=== PATIENT | male | born 1985 | race Caucasian/White ===

== ENCOUNTER 2019-04-07 03:12 | Emergency (ER) | payer SELFPAY ==
[2019-04-07 04:58] LABS: HEMATOCRIT 46.3 % (37.9-51.0); HEMOGLOBIN 15.7 g/dL (13.5-17.0); MEAN CORPUSCULAR HEMOGLOBIN 31.1 pg (27.0-33.4); MEAN CORPUSCULAR VOLUME 92 fl (80-97); PLATELET COUNT 250 10^3/uL (150-450); RED BLOOD COUNT 5.06 10^6/uL (4.35-5.55); RED CELL DISTRIBUTION WIDTH 13.2 % (11.5-14.0); WHITE BLOOD COUNT 20.4 10^3/uL (4.0-10.5)
[2019-04-07 04:59] LABS: APPEARANCE,URINE CLEAR; BILIRUBIN,URINE NEGATIVE (NEGATIVE); COLOR,URINE YELLOW; GLUCOSE, URINE NEGATIVE (NEGATIVE); KETONES,URINE NEGATIVE (NEGATIVE); LEUKOCYTE ESTERASE,URINE NEGATIVE (NEGATIVE); NITRITE,URINE NEGATIVE (NEGATIVE); PROTEIN,URINE 30 mg/dL (NEGATIVE); URINE SPECIFIC GRAVITY 1.024
[2019-04-07 05:16] LABS: ALBUMIN 4.3 g/dL (3.5-5.0); ALKALINE PHOSPHATASE 58 U/L (38-126); ANION GAP 8 (5-19); ASPARTATE AMINO TRANSFERASE 25 U/L (17-59); BILIRUBIN,DIRECT 0.3 mg/dL (0.0-0.4); BILIRUBIN,TOTAL 0.3 mg/dL (0.2-1.3); BLOOD UREA NITROGEN 15 mg/dL (7-20); CALCIUM 10.1 mg/dL (8.4-10.2); CARBON DIOXIDE 33 mmol/L (22-30); CHLORIDE 100 mmol/L (98-107); GLUCOSE 123 mg/dL (75-110); POTASSIUM 4.4 mmol/L (3.6-5.0); TOTAL PROTEIN 7.5 g/dL (6.3-8.2)
[2019-04-07 05:38] LABS: ABSOLUTE LYMPHOCYTES# (MANUAL) 1.2 10^3/uL (0.5-4.7); ABSOLUTE MONOCYTES # (MANUAL) 0.8 10^3/uL (0.1-1.4); BASOPHILS % (MANUAL) 0 % (0-2); EOSINOPHILS % (MANUAL) 0 % (0-6); LYMPHOCYTES % (MANUAL) 6 % (13-45); MONOCYTES % (MANUAL) 4 % (3-13); SEGMENTED NEUTROPHILS % (MAN) 90 % (42-78); TOTAL CELLS COUNTED 100
[2019-04-07 05:42] LABS: ANISOCYTOSIS 1+; OVALOCYTES 2+; PLATELET COMMENT ADEQUATE; POIKILOCYTOSIS 1+; TEAR DROP CELLS 1+; TOXIC GRANULATION 1+
[2019-04-07] MEDS ORDERED: KETOROLAC TROMETHAMINE INJ/PF 30 MG/1 ML SDV IV ONE (07:25)
[2019-04-07] MEDS ORDERED: ONDANSETRON HCL INJ/PF 4 MG/2 ML SDV IV ONE (07:26)
[2019-04-07] MEDS ORDERED: NORMAL SALINE 1000 ML 1,000 ML IV ONE (07:26)
--- NOTE | 2019-04-07 07:33 | ER Document Report ---
ED General - General Chief Complaint: Flank Pain Stated Complaint: ABDOMINAL PAIN Time Seen by Provider: 04/07/19 06:08 TRAVEL OUTSIDE OF THE [place] IN LAST 30 DAYS: No - HPI Notes: 33-year-old male with 5-day history of intermittent right flank pain. Worse with in last 12 hours and now moving to right upper quadrant abdomen and radiating down into right testicle. Associated nausea without vomiting. No fever/chills. No gross hematuria. Patient reports previous history of kidney stone around age 16. This was passed spontaneously. No prescription medications. No known allergies. No major surgery or serious illnesses otherwise. 1 pack/day cigarette smoker. Occasional social alcohol. No drug use. Patient works as a cook. - Related Data Allergies/Adverse Reactions: No Known Allergies Allergy (Unverified 04/07/19 05:36) Home Medications: methadone Past Medical History - General Information source: Patient, Relative - Social History Smoking Status: Current Every Day Smoker Frequency of alcohol use: Occasional Drug Abuse: None Lives with: Family Family History: Reviewed & Not Pertinent Patient has suicidal ideation: No Patient has homicidal ideation: No Renal/ Medical History: Reports: Hx Kidney Stones Past Surgical History: Reports: Hx Oral Surgery - WISDOM TEETH Review of Systems - Review of Systems Notes: Constitutional: Negative for fever. HENT: Negative for sore throat. Eyes: Negative for visual changes. Cardiovascular: Negative for chest pain. Respiratory: Negative for shortness of breath. Gastrointestinal: As per HPI. Genitourinary: As per HPI. Musculoskeletal: As per HPI. Skin: Negative for rash. Neurological: Negative for headaches, weakness or numbness. 10 point ROS negative except as marked above and in HPI. Physical Exam - Vital signs Vitals: Temp Pulse Resp BP Pulse Ox 98.8 F 96 16 126/72 H 100 04/07/19 03:17 04/07/19 03:17 04/07/19 03:17 04/07/19 03:17 04/07/19 03:17 - Notes Notes: GENERAL: Well-developed well-nourished appearing in moderate discomfort. SKIN: Good turgor no rashes. HEAD: Normocephalic atraumatic. EYES: PERRLA. EOMI. Conjunctivae and sclerae clear. EARS: CANALS AND TMS CLEAR. NOSE: CLEAR. MOUTH: Moist mucosa. Good dentition. No stridor or edema. No drooling. NECK: Supple. No masses or thyromegaly. No adenopathy. Carotids 2+ without bruits. No JVD. BACK: Minimal right CVA tenderness. CHEST: Respirations unlabored. Breath sounds clear and symmetrical. HEART: Regular rhythm. No murmur gallop or rub. ABDOMEN: Mild tenderness on deep palpation right upper quadrant. Soft without masses, organomegaly or rebound. Bowel sounds normally active. No bruits. GENITALIA: Deferred. EXTREMITIES: No edema. No calf tenderness. Cap refill less than 1.5 seconds. Dorsalis pedis and posterior tibial pulses 3+ and symmetrical. NEUROLOGICAL: GCS 15. Alert and oriented x3. Normal gait. Fluent speech. Cranial nerves II through XII intact. Sensorimotor and cerebellar normal. Normal tone. PSYCHIATRIC: Appropriate affect. Course - Re-evaluation Re-evalutation: 04/07/19 07:33 Clinically the patient has renal colic. IV normal saline. IV Toradol and Zof ran. CT stone study requested. 04/07/19 09:15 Asymptomatic at this time. 3 mm stone mid right ureter on CT. Findings discussed with patient and his mother and they understand my current recommendat ions and agree with these. Stable for outpatient follow-up with urology. - Vital Signs Vital signs: Temp Pulse Resp BP Pulse Ox 98.0 F 63 16 105/57 L 95 04/07/19 08:59 04/07/19 08:59 04/07/19 08:59 04/07/19 08:59 04/07/19 08:59 - Laboratory Result Diagrams: 04/07/19 04:42 04/07/19 04:42 Laboratory results interpreted by me: 04/07/19 04/07/19 04/07/19 03:54 04:42 04:42 WBC 20.4 H Seg Neuts % (Manual) 90 H Lymphocytes % (Manual) 6 L Abs Neuts (Manual) 18.4 H Carbon Dioxide 33 H Glucose 123 H Urine Protein 30 H Urine Blood LARGE H Urine Urobilinogen 2.0 H - Diagnostic Test Radiology reviewed: Reports reviewed Radiology results interpreted by me: 04/07/19 09:15 3 mm stone mid right ureter Discharge - Discharge Clinical Impression: Right ureterolithiasis with renal colic Condition: Stable Disposition: HOME, SELF-CARE Additional Instructions: Kidney Stone You are passing or have passed a kidney stone. These stones are usually due to increased calcium or uric acid concentrations in your urine. Stones within the kidney itself are not painful. The pain occurs as the stone leaves the kidney to pass down the long tube, called the ureter, leading to the bladder. If the stone is small, it will usually pass by itself. Most patients can pass the stone at home. You will usually receive medications for pain, nausea or vomiting, and sometimes a medication to assist in passing the kidney stone. However, if the pain is very severe or if vomiting prevents you from taking oral pain medications, you may need to return for further treatment. Drink three or four quarts of fluids per day. You will be given pain medication (if needed) and urine strainers. Strain all your urine to see if the stone passes. If your doctor has asked you to bring the stone in for analysis, return with the stone once it has passed. Return if pain or vomiting become severe, if you develop a high fever, if you are unable to pass your urine, or if other unusual symptoms occur. I am providing a note for your work for the next 3 days. I am providing the name of a urologist/urology clinic for follow-up. Advise you to see them within the next 1 week. Return here as needed for new or worsening symptoms: Pain that is worsening or unimproved Uncontrolled vomiting High fever or shaking chills Overall worsening Prescriptions: Tramadol HCl [Ultram 50 mg Tablet] 50 mg PO Q4HP PRN #12 tab PRN Reason: Pain Scale Of 5 Ketorolac Tromethamine [Toradol 10 mg Tablet] 10 mg PO Q6HP PRN 5 Days #20 tablet PRN Reason: Tamsulosin HCl [Flomax 0.4 mg Cap.sr] 0.4 mg PO DAILY #7 cap.sr.24h Ondansetron [Zofran Odt 4 mg Tablet] 1 - 2 tab PO Q4H PRN #15 tab.rapdis PRN Reason: For Nausea/Vomiting Forms: Return to Work Referrals: [facility] [Provider Group] - Follow up as needed
--- NOTE | 2019-04-07 08:31 | RADIOLOGY REPORT (SQ) ---
EXAM DESCRIPTION: CT ABD/PELVIS NO ORAL OR IV COMPLETED DATE/TIME: 04/07/2019 7:54 am REASON FOR STUDY: Right flank pain and hematuria COMPARISON: None. TECHNIQUE: CT scan of the abdomen and pelvis performed without intravenous or oral contrast. Images reviewed with lung, soft tissue, and bone windows. Reconstructed coronal and sagittal MPR images revi ewed. All images stored on PACS. All CT scanners at this facility use dose modulation, iterative reconstruction, and/or weight based d osing when appropriate to reduce radiation dose to as low as reasonably achievable (ALARA). [facility]: Dose Right [facility]: CareDose [facility]: Dose Right [facility]: Teradose 4D [facility]: Smart To The Tops RADIATION DOSE: CT Rad equipment meets quality standard of care and radiation dose reduction techniq ues were employed. CTDIvol: 7.0 mGy. DLP: 375 mGy-cm.. LIMITATIONS: None. FINDINGS: LOWER CHEST: No acute findings. NON-CONTRASTED LIVER, SPLEEN, ADRENALS: Evaluation is limited due to the absence of intravenous contr ast. There is no CT evidence of hepatic steatosis. The spleen is normal in size. There is no abnor mality of the adrenal glands. PANCREAS: No acute gross abnormality of the pancreas. GALLBLADDER: No abnormality that is apparent on CT. RIGHT KIDNEY AND URETER: Evaluation is limited due to the absence of intravenous contrast. There is a 3 mm calculus in the mid ureter that results in mild hydroureter and hydronephrosis. There is no o ther ureteral or renal calcification. LEFT KIDNEY AND URETER: Evaluation is limited due to the absence of intravenous contrast. There is n o hydronephrosis, nephrolithiasis, hydroureter or ureterolithiasis. AORTA AND RETROPERITONEUM: No aneurysm of the abdominal aorta. No retroperitoneal adenopathy, hemorr wisam or mass. BOWEL AND PERITONEAL CAVITY: No bowel obstruction, bowel wall thickening, or pericolonic/perienteric inflammation. No mesenteric adenopathy, free intraperitoneal fluid or mesenteric/ omental inflammati on. APPENDIX: Normal. PELVIS, BLADDER, AND ABDOMINAL WALL:No abnormality. BONES: No acute findings. OTHER: No other finding. IMPRESSION: 3 mm calculus in the mid right ureter that results in mild hydroureter and hydronephrosi s. COMMENT: Quality ID # [id number]: Final reports with documentation of one or more dose reduction techniques (e.g., Automated exposure control, adjustment of the mA and/or kV according to patient size, use of iterative reconstruction technique) TECHNICAL DOCUMENTATION: JOB ID: [id number] [employer]- All Rights Reserved Reading location - IP/workstation name: [email or web address]
[2019-04-07 09:31] VITALS: BP 118/60
== END 2019-04-07 09:33 | disposition home or self-care (01) ==
LOC: ER 03:12
DX: N20.1 Calculus of ureter (principal); R10.9 Unspecified abdominal pain; F17.210 Nicotine dependence, cigarettes, uncomplicated; Z87.442 Personal history of urinary calculi
CPT/HCPCS: 99284; 96361; 96374; 96375; 36415; 83690; 85025; 80053; 81001; 74176; J1885; J2405; J7030